=== PATIENT | male | born 1980 | race Caucasian/White ===

== ENCOUNTER 2016-10-27 16:59 | Emergency (ER) | payer SELFPAY ==
[2016-10-27 17:51] VITALS: BP 144/93
--- NOTE | 2016-10-27 19:24 | UC ---
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 about 5 years ago had LBP with right sciatica - History of Current Complaint Chief Complaint: UCBackPain Stated Complaint: LOW BACK PAIN Time Seen by Provider: 10/27/16 19:07 Onset/Duration: Gradual Onset, Lasting Days Timing: Constant Severity Initially: Moderate Severity Currently: Moderate Pain Intensity: 6 Pain Scale Used: 0-10 Numeric Back Pain: Is Diffuse, Radiates To - left buttock and thigh Character: Dull, Aching, Throbbing Aggravating: Movement, Lifting, Bending Alleviating: Rest Associated Signs And Symptoms: Positive: Negative Related History: Previous Back Injury - Allergies/Home Medications Allergies/Adverse Reactions: Allergies Allergy/AdvReac Type Severity Reaction Status Date / Time No Known Allergies Allergy Verified 10/27/16 17:47 PMH/Surg Hx/FS Hx/Imm Hx Previously Healthy: Yes - Surgical History Surgical History: Yes Surgery Procedure, Year, and Place: Left Ankle Fracture Repair with Two Pins, ~ 2010, [place] - Family History Known Family History: Positive: Hypertension - Social History Alcohol Use: Rare Substance Use Type: None Smoking Status (MU): Never Smoked Tobacco - Immunization History Most Recent Influenza Vaccination: Not the Season Review of Systems Constitutional: Negative Skin: Negative Eyes: Negative ENT: Negative Respiratory: Negative Cardiovascular: Negative Gastrointestinal: Negative Genitourinary: Negative Motor: Negative Neurovascular: Negative Musculoskeletal: Myalgia Neurological: Negative Psychological: Negative All Other Systems Reviewed And Are Negative: Yes Physical Exam Triage Information Reviewed: Yes Appearance: Well-Appearing, No Pain Distress Vital Signs: Initial Vital Signs Temp 98.5 F 10/27/16 17:44 Pulse 80 10/27/16 17:44 Resp 16 10/27/16 17:44 BP 144/93 10/27/16 17:44 Pulse Ox 98 10/27/16 17:44 Vital Signs Reviewed: Yes Eye Exam: Normal Eyes: Positive: Conjunctiva Clear ENT: Positive: Hearing grossly normal. Negative: Nasal congestion, Nasal drainage, Tonsillar swelling, Tonsillar exudate, Trismus Neck: Positive: Supple, Nontender, No Lymphadenopathy Respiratory: Positive: Lungs clear, Normal breath sounds, No respiratory distress, No accessory muscle use Cardiovascular: Positive: RRR, No Murmur Musculoskeletal: Positive: Strength Intact, ROM Intact, No Edema Neurological Exam: Normal Neurological: Positive: Alert Psychological Exam: Normal Skin Exam: Normal Back Pain Course/Dx - Differential Dx/Diagnosis Provider Diagnoses: acute lumbar strain. non discogenic sciatica Discharge - Discharge Plan Condition: Stable Disposition: HOME Prescriptions: Cyclobenzaprine TAB* [Flexeril TAB*] 5 mg PO TID PRN #21 tab PRN Reason: Spasms Naproxen [Naproxen 500 MG TABS] 500 mg PO BID PRN #30 tab PRN Reason: Pain Patient Education Materials: Low Back Strain (ED) Forms: *Work Release Referrals: No Primary Care Phys,NOPCP [Primary Care Provider] - Additional Instructions: rest recheck later this week (4-5 days) if not better don't take flexeril and drive or work Images Front/Back of Body, Lg ([place]): 1 - tender/decreased ROM(unable to flex very far). (-) SLR. dtrs symmetrical. normal gait
== END 2016-10-27 19:33 | disposition home or self-care (01) ==
LOC: UCCORT 16:59
DX: S39.012A Strain of muscle, fascia and tendon of lower back, initial encounter (principal); X58.XXXA Exposure to other specified factors, initial encounter; Y93.9 Activity, unspecified; Y92.9 Unspecified place or not applicable; M54.42 Lumbago with sciatica, left side
CPT/HCPCS: 99212; G0463

== ENCOUNTER 2016-10-31 10:25 | Emergency (ER) | payer SELFPAY ==
[2016-10-31 10:53] VITALS: BP 150/97
--- NOTE | 2016-10-31 11:38 | UC ---
Back Pain HPI - HPI Summary HPI Summary: 36 year old male presents to the clinic for a follow-up examination related to low back pain. 5/10 dull deep achy pain at rest, alleviated by sitting and heat application, worsened by standing and bending over. Pain radiates down the left leg into the left posterior knee space. Denies numbness or tingling in the left leg. Denies bowel or urinary changes or neuro-musculoskeletal weakness. Patient was seen at Urgent care 10/27/16 for acute low back pain treated with naproxen 500mg BID and Flexeril 5mg TID without any pain relief. Patient works on electrical towers, aggravated a previous back injury. Five years ago patient herniated multiple disc in his lower back. In the past , back pain was treated and alleviated with Physical therapy and a steroidal injection. - History of Current Complaint Chief Complaint: UCBackPain Stated Complaint: FOLLOW UP -BACK PAIN Time Seen by Provider: 10/31/16 11:00 Hx Obtained From: Patient Onset/Duration: Gradual Onset, Still Present Timing: Constant Severity Initially: Moderate Severity Currently: Moderate Pain Intensity: 5 Pain Scale Used: 0-10 Numeric Back Pain: Radiates To - Left buttock and posterior knee Character: Dull, Aching, Burning Aggravating: Movement, Bending Alleviating: Position, Heat Associated Signs And Symptoms: Negative: Weakness, Numbness, Bladder Incontinence, Bowel Incontinence Related History: Previous Back Injury - Allergies/Home Medications Allergies/Adverse Reactions: Allergies Allergy/AdvReac Type Severity Reaction Status Date / Time No Known Allergies Allergy Verified 10/27/16 17:47 PMH/Surg Hx/FS Hx/Imm Hx Previously Healthy: Yes Endocrine History Of: Denies: Diabetes, Thyroid Disease Cardiovascular History Of: Denies: Cardiac Disorders, Hypertension Respiratory History Of: Denies: COPD, Asthma GI/ History Of: Denies: Gastroesophageal Reflux Neurological History Of: Denies: TIA Psychological History Of: Denies: Anxiety, Depression Cancer History Of: Denies: Lung Cancer - Surgical History Surgical History: Yes Surgery Procedure, Year, and Place: Left Ankle Fracture Repair with Two Pins, ~ 2010, [place] - Family History Known Family History: Positive: Cardiac Disease - Father age 52 r/t CVA , Hypertension, Other - Morbid Obesity-Father - Social History Occupation: Employed Full-time Lives: With Family Alcohol Use: Rare Substance Use Type: None Smoking Status (MU): Never Smoked Tobacco Have You Smoked in the Last Year: No - Immunization History Most Recent Influenza Vaccination: Not the 2015/2016 Season Review of Systems Constitutional: Negative Skin: Negative Eyes: Negative ENT: Negative Respiratory: Negative Cardiovascular: Negative Gastrointestinal: Negative Genitourinary: Negative Motor: Negative Neurovascular: Negative Musculoskeletal: Decreased ROM - right sided torsion rotation decreased. Pain with spinal flexion Neurological: Negative Psychological: Negative All Other Systems Reviewed And Are Negative: Yes Physical Exam Triage Information Reviewed: Yes Appearance: Well-Appearing Vital Signs: Initial Vital Signs Temp 98.3 F 10/31/16 10:45 Pulse 75 10/31/16 10:45 Resp 16 10/31/16 10:45 BP 150/97 10/31/16 10:45 Pulse Ox 99 10/31/16 10:45 Vital Signs Reviewed: Yes Eye Exam: Normal Eyes: Positive: Conjunctiva Clear ENT Exam: Normal ENT: Positive: Normal ENT inspection Dental Exam: Normal Neck exam: Normal Neck: Positive: Supple, Nontender, No Lymphadenopathy Respiratory Exam: Normal Respiratory: Positive: Chest non-tender, Lungs clear, Normal breath sounds, No respiratory distress Cardiovascular Exam: Normal Cardiovascular: Positive: RRR, No Murmur, Pulses Normal Abdominal Exam: Normal Abdomen Description: Positive: Nontender, Soft. Negative: Bruit, Distended, Guarding Bowel Sounds: Positive: Present Musculoskeletal Exam: Normal Musculoskeletal: Positive: ROM Limited @ - Lumbar spinal region Neurological Exam: Normal Neurological: Positive: Alert, Muscle Tone Normal Psychological Exam: Normal Skin Exam: Normal Back Pain Course/Dx - Differential Dx/Diagnosis Provider Diagnoses: Acute on chronic back pain. lumbar radiculopathy Discharge - Discharge Plan Condition: Stable Disposition: HOME Discharge Disposition Comment: Lumbar radiculopathy Prescriptions: predniSONE TAB* [Deltasone TAB*] 60 mg PO DAILY #15 tab Patient Education Materials: Lumbar Radiculopathy (ED), Lower Back Exercises ( ED), Chronic Back Pain (ED) Referrals: No Primary Care Phys,NOPCP [Primary Care Provider] - If Needed (Follow-up with physical therapy) Additional Instructions: Avoid heavy lifting (15 lbs) x 1 week No repetitive bending or twisting Avoid climbing ladders x 7 days. Begin PT Take medication as prescribed Seek medical follow-up with any new or worsening symptoms.
== END 2016-10-31 12:14 | disposition home or self-care (01) ==
LOC: UCCORT 10:25
DX: G89.29 Other chronic pain (principal); M54.5 Low back pain; M54.16 Radiculopathy, lumbar region
CPT/HCPCS: 99212; G0463

== ENCOUNTER 2016-11-07 18:28 | Emergency (ER) | payer SELFPAY ==
[2016-11-07 18:39] VITALS: BP 144/95
--- NOTE | 2016-11-07 19:07 | UC ---
UC General HPI - HPI Summary HPI Summary: Patient was seen twice for low back pain. he has been completing PT and has improved. pain currently 0/10. history of disc injury in the past. - History of Current Complaint Chief Complaint: UCBackPain Stated Complaint: RTW NOTE RECHECK Time Seen by Provider: 11/07/16 18:42 Hx Obtained From: Patient Onset/Duration: Sudden Onset, Resolved Pain Intensity: 1 - Allergy/Home Medications Allergies/Adverse Reactions: Allergies Allergy/AdvReac Type Severity Reaction Status Date / Time No Known Allergies Allergy Verified 11/07/16 18:39 PMH/Surg Hx/FS Hx/Imm Hx Previously Healthy: Yes Endocrine History Of: Denies: Diabetes, Thyroid Disease Cardiovascular History Of: Denies: Cardiac Disorders, Hypertension Respiratory History Of: Denies: COPD, Asthma GI/ History Of: Denies: Gastroesophageal Reflux Neurological History Of: Denies: TIA Psychological History Of: Denies: Anxiety, Depression Cancer History Of: Denies: Lung Cancer - Surgical History Surgical History: Yes Surgery Procedure, Year, and Place: Left Ankle Fracture Repair with Two Pins, ~ [place] - Family History Known Family History: Positive: Cardiac Disease - Father age 52 r/t CVA , Hypertension, Other - Morbid Obesity-Father - Social History Alcohol Use: Rare Substance Use Type: None Smoking Status (MU): Never Smoked Tobacco Have You Smoked in the Last Year: No - Immunization History Most Recent Influenza Vaccination: Not the 2015/2016 Season Review of Systems Constitutional: Negative Skin: Negative Eyes: Negative ENT: Negative Respiratory: Negative Cardiovascular: Negative Gastrointestinal: Negative Genitourinary: Negative Motor: Negative Neurovascular: Negative Musculoskeletal: Arthralgia - on occasin, not currently Neurological: Negative All Other Systems Reviewed And Are Negative: Yes Physical Exam Triage Information Reviewed: Yes Appearance: Well-Appearing, No Pain Distress, Well-Nourished Vital Signs: Initial Vital Signs Temp 99 F 11/07/16 18:34 Pulse 98 11/07/16 18:34 Resp 16 11/07/16 18:34 BP 144/95 11/07/16 18:34 Pulse Ox 100 11/07/16 18:34 Vital Signs Reviewed: Yes Eye Exam: Normal Eyes: Positive: Conjunctiva Clear ENT Exam: Normal ENT: Positive: Normal ENT inspection, Pharynx normal, TMs normal Dental Exam: Normal Neck exam: Normal Neck: Positive: Supple, Nontender, No Lymphadenopathy Respiratory Exam: Normal Respiratory: Positive: Chest non-tender, Lungs clear, Normal breath sounds Cardiovascular Exam: Normal Cardiovascular: Positive: RRR, No Murmur, Pulses Normal Abdomen Description: Positive: Nontender, No Organomegaly, Soft Bowel Sounds: Positive: Present Musculoskeletal Exam: Normal Musculoskeletal: Positive: Strength Intact, ROM Intact, No Edema Neurological Exam: Normal Neurological: Positive: Alert, Muscle Tone Normal Psychological Exam: Normal Skin Exam: Normal Course/Dx - Course Course Of Treatment: hx obtained, exam performed, ROM is full and he is painfree. may return to work. - Differential Dx - Multi-Symptom Provider Diagnoses: low back pain Discharge - Discharge Plan Condition: Stable Disposition: HOME Forms: *Work Release Referrals: No Primary Care Phys,NOPCP [Primary Care Provider] - Additional Instructions: Continue with your therapy and use of NSAIDS as needed. follow up with primary physcian with any reoccurance of symptoms.
== END 2016-11-07 18:50 | disposition home or self-care (01) ==
LOC: UCCORT 18:28
DX: M54.5 Low back pain (principal)
CPT/HCPCS: 99211; G0463

== ENCOUNTER 2018-04-02 08:18 | Emergency (ER) | payer SELFPAY ==
[2018-04-02 08:38] VITALS: BP 138/94
--- NOTE | 2018-04-02 09:23 | UC ---
Respiratory Complaint HPI - HPI Summary HPI Summary: Patient presents complaining of over a week of worsening sinus congestion, chest congestion and cough. Has been losing his voice over the past few days. Has sore throat and fatigue. Denies fever, nausea/vomiting, ear pain. - History of Current Complaint Chief Complaint: UCGeneralIllness Stated Complaint: SINUS/COUGH Time Seen by Provider: 04/02/18 09:14 Hx Obtained From: Patient Onset/Duration: Gradual Onset, Lasting Days, Still Present Timing: Constant Severity Initially: Moderate Severity Currently: Moderate Pain Intensity: 3 Pain Scale Used: 0-10 Numeric Character: Cough: Nonproductive Aggravating Factors: Nothing Alleviating Factors: Nothing Associated Signs And Symptoms: Positive: Hoarseness. Negative: Dyspnea, Fever, Wheezing, URI - Allergies/Home Medications Allergies/Adverse Reactions: Allergies Allergy/AdvReac Type Severity Reaction Status Date / Time No Known Allergies Allergy Verified 11/07/16 18:39 Home Medications: Home Medications Phenylephrine/Acetaminophn/Cpm [Sinus Congestion-Pain Caplet] 1 each PO Q12HR [History Confirmed 04/02/18] PMH/Surg Hx/FS Hx/Imm Hx Previously Healthy: Yes - Surgical History Surgical History: Yes Surgery Procedure, Year, and Place: Left Ankle Fracture Repair with Two Pins, ~ [place] - Family History Known Family History: Positive: Cardiac Disease - Father age 52 r/t CVA , Other - Morbid Obesity-Father Negative: Hypertension - Social History Alcohol Use: Rare Substance Use Type: None Smoking Status (MU): Never Smoked Tobacco Have You Smoked in the Last Year: No - Immunization History Most Recent Influenza Vaccination: Not the Season Review of Systems Constitutional: Fatigue ENT: Sore Throat Respiratory: Cough Cardiovascular: Negative Gastrointestinal: Negative All Other Systems Reviewed And Are Negative: Yes Physical Exam Triage Information Reviewed: Yes Appearance: Well-Appearing, No Pain Distress, Well-Nourished Vital Signs: Initial Vital Signs Temp 99.3 F 04/02/18 08:32 Pulse 99 04/02/18 08:32 Resp 18 04/02/18 08:32 BP 138/94 04/02/18 08:32 Pulse Ox 95 04/02/18 08:32 Vital Signs Reviewed: Yes Eyes: Positive: Conjunctiva Clear ENT: Positive: Hearing grossly normal, Pharyngeal erythema, TMs normal, Tonsillar swelling, Tonsillar exudate, Hoarse voice Neck: Positive: Supple, Nontender, No Lymphadenopathy Respiratory Exam: Normal Cardiovascular Exam: Normal Abdomen Description: Positive: Soft Musculoskeletal: Positive: No Edema Neurological: Positive: Alert Psychological: Positive: Age Appropriate Behavior Skin: Negative: rashes UC Diagnostic Evaluation - Laboratory O2 Sat by Pulse Oximetry: 95 Respiratory Course/Dx - Differential Dx/Diagnosis Provider Diagnoses: ACUTE TONSILLITIS Discharge - Sign-Out/Discharge Documenting (check all that apply): Discharge/Admit/Transfer - Discharge Plan Condition: Stable Disposition: HOME Prescriptions: Amoxicillin 875 mg PO BID #20 tablet Patient Education Materials: Tonsillitis (ED) Referrals: No Primary Care Phys,NOPCP [Primary Care Provider] - Additional Instructions: YOUR SYMPTOMS MAY BE VIRALLY MEDIATED BUT GIVEN THE LENGTH OF TIME YOU HAVE BEEN ILL WE WILL COVER YOU WITH ANTIBIOTICS. IF YOU START THE MEDICINE BE SURE TO TAKE IT FOR THE FULL COURSE. REST, HYDRATE, OTC MEDS NEEDED. SEEK FOLLOW- UP WITH A PCP IF YOU ARE NOT IMPROVING OVER THE NEXT 1-2 WEEKS. CALL THE NUMBER BELOW FOR ASSISTANCE IN ESTABLISHING WITH A PCP An additional resource available to assist in finding the appropriate physician for your health care needs is [facility] ([facility]). You may contact them by calling [phone]. - Billing Disposition and Condition Condition: STABLE Disposition: Home
== END 2018-04-02 09:36 | disposition home or self-care (01) ==
LOC: UCCORT 08:18
DX: J03.90 Acute tonsillitis, unspecified (principal); R09.81 Nasal congestion
CPT/HCPCS: 99212; G0463

== ENCOUNTER 2018-04-05 15:24 | Emergency (ER) | payer SELFPAY ==
[2018-04-05 15:46] VITALS: BP 131/81
--- NOTE | 2018-04-05 15:48 | UC ---
Throat Pain/Nasal [place] HPI - HPI Summary HPI Summary: 38 yo male presents with sore throat and vomiting. He tells me that he was seen on 04/02 for sore throat and sinus symptoms and rx'd amoxicillin 875mg. On 04/04 he had 3 episodes of vomiting after taking amoxicillin. No abdominal pain and did not feel nauseous. Ate dinner later that night without issue. Today took his first dose of amoxicillin on an empty stomach and had 5 episodes of vomiting. Unsure if he has taken amoxicillin in the past. Currently denies fever , chills, cough, SOB, chest pain, abdominal pain, nausea, diarrhea. - History of Current Complaint Chief Complaint: UCGeneralIllness Stated Complaint: VOMITING Time Seen by Provider: 04/05/18 15:48 Hx Obtained From: Patient Onset/Duration: Gradual Onset Severity: Mild Pain Intensity: 3 Pain Scale Used: 0-10 Numeric - Allergies/Home Medications Allergies/Adverse Reactions: Allergies Allergy/AdvReac Type Severity Reaction Status Date / Time No Known Allergies Allergy Verified 04/05/18 15:43 PMH/Surg Hx/FS Hx/Imm Hx - Additional Past Medical History Additional PMH: None Previously Healthy: Yes - Surgical History Surgical History: Yes Surgery Procedure, Year, and Place: Left Ankle Fracture Repair with Two Pins, ~ [place] - Family History Known Family History: Positive: Cardiac Disease - Father age 52 r/t CVA , Other - Morbid Obesity-Father Negative: Hypertension - Social History Occupation: Employed Full-time Lives: With Family Alcohol Use: Rare Substance Use Type: None Smoking Status (MU): Never Smoked Tobacco Have You Smoked in the Last Year: No - Immunization History Most Recent Influenza Vaccination: Not the 2016/2016 Season Review of Systems Constitutional: Negative Skin: Negative Eyes: Negative ENT: Sore Throat, Sinus Congestion, Sinus Pain/Tenderness Respiratory: Negative Cardiovascular: Negative Gastrointestinal: Negative Neurovascular: Negative Neurological: Negative Psychological: Negative All Other Systems Reviewed And Are Negative: Yes Physical Exam - Summary Physical Exam Summary: GENERAL: NAD. WDWN. No pain distress. SKIN: No rashes, sores, lesions, or open wounds. HEENT: Head: AT/NC Eyes: Conjunctiva clear without inflammation or discharge. Ears: Hearing grossly normal. TMs intact, no bulging, erythema, or edema. Nose: Nasal mucosa pink and moist. TTP maxillary and frontal sinus. Throat: Posterior oropharynx mild erythema and 2+ tonsillar enlargement. Moderate yellow exudates. Uvula midline. No hoarse voice or muffled voice. NECK: Supple. No lymphadenopathy. Mild tender tonsillar CHEST: CTAB. No r/r/w. No accessory muscle use. Breathing comfortably and in no distress. CV: RRR. Without m/r/g. Pulses intact. Brisk cap refill. ABDOMEN: Soft. NTTP. No distention or guarding. Bowel sounds present NEURO: Alert. CN II-XII grossly intact. PSYCH: Age appropriate behavior. Triage Information Reviewed: Yes Vital Signs: Initial Vital Signs Temp 99 F 04/05/18 15:40 Pulse 96 04/05/18 15:40 Resp 17 04/05/18 15:40 BP 131/81 04/05/18 15:40 Pulse Ox 97 04/05/18 15:40 Throat Pain/Nasal Course/Dx - Course Course Of Treatment: POC strep negative. I suspect his vomiting is from taking high dose amoxicillin on an empty stomach. He would prefer to switch antibiotics. I will switch him to keflex and rx zofran for nausea. - Differential Dx/Diagnosis Provider Diagnoses: tonsillitis Discharge - Sign-Out/Discharge Documenting (check all that apply): Discharge/Admit/Transfer - Discharge Plan Condition: Stable Disposition: HOME Prescriptions: Cephalexin CAP* [Keflex CAP*] 500 mg PO BID #14 cap Ondansetron ODT TAB* [Zofran 4 MG Odt TAB*] 4 mg PO Q8H PRN #9 tab.odt MDD 3 PRN Reason: Nausea Patient Education Materials: Tonsillitis (ED) Referrals: No Primary Care Phys,NOPCP [Primary Care Provider] - Additional Instructions: If you develop a fever, shortness of breath, chest pain, new or worsening symptoms - please call your PCP or go to the ED. 1) Do not continue the amoxicillin or take any antibiotics tonight or tomorrow morning. Start the Cephalexin (Keflex) tomorrow afternoon - Billing Disposition and Condition Condition: STABLE Disposition: Home
== END 2018-04-05 16:10 | disposition home or self-care (01) ==
LOC: UCCORT 15:24
DX: J03.90 Acute tonsillitis, unspecified (principal)
CPT/HCPCS: 87651; 99212; G0463

== ENCOUNTER 2019-03-04 19:05 | Emergency (ER) | payer OTHER ==
[2019-03-04 19:23] VITALS: BP 146/93
--- NOTE | 2019-03-04 20:33 | UC ---
Back Pain HPI - HPI Summary HPI Summary: 38-year-old male presents with 3-4 week history of left lower back pain. States he had a previous low back injury in 2009 but had been doing well until he slipped on some ice 3-4 weeks ago. Complains of sharp left lower back pain that radiates into his buttocks and down his left leg to the level of his knee. Presents tonight because the pain has worsened over the last couple of days and made it difficult for him to sleep. He has not been taking any over-the- counter analgesics for the pain. States with his previous injury he did some physical therapy which did seem to improve his symptoms. Denies fever, chills, abdominal pain, nausea, vomiting, dysuria, frequency, urgency, hematuria, weakness, numbness, or tingling of the leg, or loss of bowel or bladder control. - History of Current Complaint Chief Complaint: UCBackPain Stated Complaint: BACK PAIN Time Seen by Provider: 03/04/19 20:29 Hx Obtained From: Patient Pain Intensity: 5 - Allergies/Home Medications Allergies/Adverse Reactions: Allergies Allergy/AdvReac Type Severity Reaction Status Date / Time No Known Allergies Allergy Verified 03/04/19 19:23 PMH/Surg Hx/FS Hx/Imm Hx Previously Healthy: Yes - Denies significant PMH - Surgical History Surgical History: Yes Surgery Procedure, Year, and Place: Left Ankle Fracture Repair with Two Pins, ~ [place] - Family History Known Family History: Positive: Cardiac Disease - Father age 52 r/t CVA , Other - Morbid Obesity-Father Negative: Hypertension - Social History Occupation: Employed Full-time Lives: With Family Alcohol Use: Rare Substance Use Type: None Smoking Status (MU): Never Smoked Tobacco Have You Smoked in the Last Year: No - Immunization History Most Recent Influenza Vaccination: Not the 2016/2017 Season Review of Systems All Other Systems Reviewed And Are Negative: Yes Constitutional: Negative: Fever, Chills Skin: Negative: Rash Respiratory: Positive: Negative Cardiovascular: Positive: Negative Gastrointestinal: Negative: Abdominal Pain, Vomiting, Diarrhea, Nausea Genitourinary: Negative: Dysuria, Hematuria, Frequency, Urgency Motor: Negative: Weakness Neurovascular: Negative: Decreased Sensation Musculoskeletal: Positive: Other: - See HPI Neurological: Positive: Negative Is Patient Immunocompromised?: No Physical Exam - Summary Physical Exam Summary: GENERAL APPEARANCE: Well developed, well nourished, alert and cooperative, and appears to be in no acute distress. CARDIAC: Normal S1 and S2. No S3, S4 or murmurs. Rhythm is regular. There is no peripheral edema, cyanosis or pallor. Extremities are warm and well perfused. Capillary refill is less than 2 seconds. Peripheral pulses intact. LUNGS: Clear to auscultation without rales, rhonchi, wheezing or diminished breath sounds. ABDOMEN: Positive bowel sounds. Soft, nondistended, nontender. No guarding or rebound. No masses or hepatosplenomegally. MUSKULOSKELETAL: ROM intact to all extremities. No joint erythema or tenderness. Normal muscular development. Normal gait. BACK: Examination of the spine reveals normal posture, no midline spinal deformity or tenderness. Mild left lumbar paraspinous soft tissue tenderness without spasm. NEUROLOGICAL: Strength and sensation symmetric and intact to bilateral lower extremities. SKIN: Skin normal color, texture and turgor with no lesions or eruptions. Triage Information Reviewed: Yes Vital Signs: Initial Vital Signs Temp 98.6 F 03/04/19 19:19 Pulse 92 03/04/19 19:19 Resp 17 03/04/19 19:19 BP 146/93 03/04/19 19:19 Pulse Ox 97 03/04/19 19:19 Vital Signs Reviewed: Yes Back Pain Course/Dx - Course Course Of Treatment: 38-year-old male presents with 3-4 week history of left lower back pain. States he had a previous low back injury in 2009 but had been doing well until he slipped on some ice 3-4 weeks ago. Complains of sharp left lower back pain that radiates into his buttocks and down his left leg to the level of his knee. Presents tonight because the pain has worsened over the last couple of days and made it difficult for him to sleep. He has not been taking any over-the- counter analgesics for the pain. States with his previous injury he did some physical therapy which did seem to improve his symptoms. Denies fever, chills, abdominal pain, nausea, vomiting, dysuria, frequency, urgency, hematuria, weakness, numbness, or tingling of the leg, or loss of bowel or bladder control. Afebrile. Hypertensive otherwise vital signs stable. Exam revealed some mild left lumbar paraspinous soft tissue tenderness without spasm. No midline lumbar spinal tenderness or deformity. Bilateral lower extremity strength and station was intact. Normal gait. Patient was given ketorolac 30 mg IM in the clinic for pain. I'm going to treat him conservatively for acute low back pain using naproxen 500 mg every 12 hours 5-7 days then every 12 hours as needed. I'm also providing him with cyclobenzaprine 10 mg 1 tablet every 8 hours as needed for severe pain or spasm. Recommending heat therapy. I provided him with a referral to physical therapy since he stated that this has helped him in the past. He is to return here or with his primary care provider if symptoms do not improve. Anticipatory guidance and warning symptoms requiring immediate evaluation the emergency room was reviewed with the patient. Verbalizes understanding and agrees with plan of care. - Differential Dx/Diagnosis Differential Diagnosis/HQI/PQRI: Herniated Disc, Renal Colic, Strain Provider Diagnosis: Low back pain Discharge - Sign-Out/Discharge Documenting (check all that apply): Patient Departure All imaging exams completed and their final reports reviewed: No Studies - Discharge Plan Condition: Stable Disposition: HOME Prescriptions: Cyclobenzaprine HCl 10 mg PO Q8HR #21 tablet Naproxen [Naproxen 500 mg tab] 500 mg PO Q12HR #30 tablet Patient Education Materials: Acute Low Back Pain (ED) Referrals: No Primary Care Phys,NOPCP [Primary Care Provider] - [facility] [place] PHYSICIAN REFERRAL [Outside] Additional Instructions: You were given an injection of an anti-inflammatory pain medication called ketorolac (Toradol) in the clinic for your pain. Do not take any other anti- inflammatory medication such as ibuprofen (Advil, Motrin), naproxen (Aleve), or aspirin for at least 8 hours after receiving the injection. Starting tomorrow morning take naproxen 500 mg 1 tablet every 12 hours with food for the next 5-7 days then may take every 12 hours as needed for pain. Take cyclobenzaprine (Flexeril) 10 mg 1 tablet every 8 hours as needed for severe pain or spasm. This medication will cause drowsiness do not take and drive or operate machinery. Apply warm moist heat to the affected area for 15-20 minutes at least 4 times a day to help with pain and relax the muscles. I have given you a referral to physical therapy since this has helped with your back pain in the past. Return here or follow up with a primary care provider in 7 days if symptoms do not improve. Your blood pressure was noted to be elevated in the clinic this evening it is recommended that you follow up with a primary care provider for this within 4 weeks. I have given you the contact information for the [facility] physician referral service which can a sister with establish with a primary care provider if needed. Seek immediate medical attention in the emergency room if you develop fever greater than 100.5 F, have severe abdominal pain, persistent or projectile vomiting, you are unable to ambulate or bear weight, develop numbness, tingling , or weakness of the leg, lose control of her bowel or bladder, or have any worsening of symptoms. - Billing Disposition and Condition Condition: STABLE Disposition: Home
[2019-03-04] MEDS ORDERED: Ketorolac INJ* 30 MG/ML 1 ML VIAL IM ONE (20:40)
[2019-03-04] MEDS ORDERED: Cyclobenzaprine TAB* 10 MG PO ONE (20:40)
[2019-03-04] MEDS ORDERED: Naproxen TAB* 250 MG PO ONE (20:40)
== END 2019-03-04 21:04 | disposition home or self-care (01) ==
LOC: UCCORT 19:05
DX: M54.5 Low back pain (principal)
CPT/HCPCS: 99213; A9270-GY; G0463; J1885